=== PATIENT | male | born 1995 | race Caucasian/White ===

== ENCOUNTER 2025-06-30 17:23 | Emergency (ER) | payer SELFPAY ==
[2025-06-30] VITALS (23 sets, daily range): BP systolic 70–124; BP diastolic 35–78; PULSE 84–92; BMI 30.4
[2025-06-30] MEDS: TYLENOL 1000 MG PO (17:56)
[2025-06-30] MEDS: NSS 1000 IV ×2 (18:12→18:52)
[2025-06-30 18:30] LABS: Hematocrit 44.3 % (39.0-52.0); Hemoglobin 16.0 g/dL (13.0-18.0); Mean Corp Hgb Conc. 36.1 g/dL (33.0-37.0); Mean Corpuscular Volume 87.5 fL (80.0-94.0); Nucleated Red Blood Cells % 0 % (-); Platelet Count 203 10^3/uL (130-400); Red Cell Dist. Width 11.6 % (11.5-14.5)
[2025-06-30 18:46] LABS: ALT (SGPT) 36 U/L (0-50); AST (SGOT) 23 U/L (17-59); Albumin 4.5 g/dl (3.5-5.0); Alkaline Phosphatase 75 U/L (38-126); Blood Urea Nitrogen 9 mg/dl (9-20); COVID-19 Antigen Negative (Negative); Calcium 8.9 mg/dl (8.4-10.2); Carbon Dioxide 26 mmol/L (22-30); Chloride 97 mmol/L (98-107); Estimated Creatinine Clearance 98 ml/min; Glucose 141 mg/dl (70-99); Potassium 4.0 mmol/L (3.5-5.1); Sodium 132 mmol/L (135-145); Total Protein 7.0 g/dl (6.3-8.2); eGFR > 60.00
[2025-06-30 18:49] LABS: Troponin I 0.018 ng/ml
[2025-06-30] MEDS: MOTRIN 600 MG PO (18:49)
--- NOTE | 2025-06-30 21:33 | ED.GENMED ---
History of Present Illness
General
Chief Complaint: Chest Pain
Source: patient and spouse ( states that she feels that he was warm at home and felt very hot)
Time Seen by Provider: 06/30/25 17:44
History of Present Illness
History of Present Illness:
Note:
CHIEF COMPLAINT(S)
Headache for three days, fever, body aches, and dizziness.
HISTORY OF PRESENT ILLNESS
The patient is a 29-year-old male presenting with a chief complaint of a headache that has persisted for three days. He reports associated symptoms including fever, noted as high as 99�F on a forehead thermometer, which he acknowledged may not be
entirely accurate. The patient describes chills and body aches that began the previous night and persist. He also mentions feeling dizzy easily and having a cough with a sensation of tightness but without productive sputa. He reports no nasal
congestion or rhinorrhea. The patient took aspirin this morning and acetaminophen previously to manage the symptoms, though they have not provided significant relief. He notes experiencing shivers and feeling tense during these episodes. He denies
neck stiffness.
Additional historian
Spouse states that he felt really warm over the last several days. She states he did have rigors. She also states that the patient's son recently was treated for pneumonia
PAST MEDICAL AND SURGICAL HISTORY
He also reported an incident of Escherichia coli infection that resulted in bloody diarrhea.
SOCIAL HISTORY
The patient does not consume alcohol or use tobacco products. 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
PHYSICAL EXAM
General: Alert, no acute distress.
Skin: Warm, dry.
Head: Normocephalic, atraumatic.
Neck: Supple, trachea midline. No neck rigidity.
Eye, Ears, Nose, Mouth, and Throat: Pupils equal, round, react to light. Oral mucosa moist.
Respiratory: Slightly diminished breath sounds at the right base; otherwise clear. Respirations are non-labored.
Cardiovascular: Heart regular, without murmur. Normal peripheral perfusion. No edema.
Gastrointestinal: Abdomen soft and tender, non-distended.
Extremities: Warm, well-perfused, no edema.
Neurological: Alert and oriented to person, place, time, and situation. No focal neurological deficit observed.
Psychiatric: Cooperative, appropriate mood & affect.
PLAN
- Conduct COVID-19 testing.
- Obtain a chest X-ray to rule out pneumonia.
- Perform blood tests and cultures to assess for systemic infection or dehydration.
- Commence intravenous hydration.
- Monitor vital signs and response to treatment.
- Continue observation for any change in symptoms or condition.
DIFFERENTIAL DIAGNOSIS
The Differential Diagnosis includes, in no particular order and is not limited to:
1. Viral infection
2. Bacterial pneumonia
3. Influenza
4. COVID-19
5. Dehydration
6. Sepsis
7. Meningitis
8. Sinusitis
9. Tension headache
10. Migraine
Disposition:
SUMMARY OF ENCOUNTER
The 29-year-old male patient presented to the emergency department with symptoms of fever, headache, cough, and a recent history of chills and body aches. He mentioned a previous incident of bacterial pneumonia, and his [id number] son had recently
been treated for pneumonia. In the emergency department, the patient underwent laboratory tests and imaging. Laboratory results included a normal white blood cell count and normal lactic acid at 1.1 mmol/L. A COVID-19 test was negative, and a chest
X-ray showed right lower lobe pneumonia. Following treatment with an intravenous dose of ampicillin/sulbactam (Unasyn), the patients symptoms improved, and vital signs normalized. The plan included treating the patient with amoxicillin/clavulanate
(Augmentin) at home for pneumonia.
DISPOSITION
Discharge.
ASSESSMENT
The patient has a right lower lobe pneumonia with recent history of bacterial pneumonia in his family. Laboratory and imaging results supported a non-viral etiology, and the patient responded positively to initial antibiotic treatment.
EMERGENCY TREATMENTS ADMINISTERED
The patient received an intravenous dose of ampicillin/sulbactam (Unasyn).
PLAN
The patient was discharged with a prescription for amoxicillin/clavulanate (Augmentin) to continue treatment for right lower lobe pneumonia. Outpatient follow-up was advised to monitor and ensure resolution of the pneumonia.
INDEPENDENT REVIEW OF LABS AND INTERPRETATION OF TESTS
My independent review of the CBC indicated a normal white blood cell count. My independent review of serum lactate is normal at 1.1 mmol/L. My independent interpretation of the chest X-ray shows right lower lobe pneumonia. The COVID-19 test was
negative.
PATIENT EDUCATION AND COUNSELING
The patient and his spouse were counseled on reasons to return to the emergency department, including worsening symptoms or failure of symptoms to improve with treatment. They agreed to the outpatient management plan.
FOLLOW-UP INSTRUCTIONS
Please follow up with a primary care provider for outpatient management and evaluation of pneumonia resolution.
MEDICATION RECONCILIATION
The patient was prescribed amoxicillin/clavulanate (Augmentin) for home treatment of pneumonia.
MEDICAL DECISION MAKING
-Complexity of Data Reviewed: Chronic conditions affecting care include a recent history of bacterial pneumonia. Differential diagnoses considered included viral infection, bacterial pneumonia, influenza, COVID-19, dehydration, sepsis, meningitis,
sinusitis, tension headache, and migraine.
-Data:
Category 1
Lab tests ordered and reviewed: CBC (showing normal WBC), lactic acid (normal at 1.1 mmol/L), COVID-19 test (negative).
Radiology: My independent interpretation of the chest X-ray showed right lower lobe pneumonia.
-Risk:
Prescription medication was prescribed: amoxicillin/clavulanate (Augmentin) to continue treatment for pneumonia.
Consideration of Admission/Observation: Escalation of care including admission/observation was considered given the complexity and risk of the patients presenting complaint, exam findings, and/or their underlying comorbidities. However, ultimately I
feel the patient is safe for outpatient management with close follow-up. Reasoning: Work-up reassuring, does not reveal any acute life/organ-threatening processes, patients symptoms well controlled upon reevaluation, reexamination is reassuring,
vitals are stable, patient agreeable with discharge, reliable for follow-up.
DIAGNOSIS
Pneumonia, unspecified organism (ICD-10: J18.9).
Past History
Past History
ED Past Medical History: None
ED Past Surgical History: None
Social History
Tobacco: Non-smoker
Personal:
Living: with family
Employment: Employed
Phy Exam
Physical Exam
Physical Exam:
.
Scores
Heart Score for Chest Pain Patients
STEMI patient?: Not applicable
Course
Orders/Labs/Results
Orders:
Orders
06/30/25 17:26
Electrocardiogram (*1) Urgent
Reason for Study: Chest Pain
EKG- Treatment ONCE
06/30/25 17:56
Acetaminophen [Tylenol] 1,000 mg PO NOW STA
06/30/25 17:58
0.9% Sodium Chloride 1000 ml [Nss] 1,000 ml IV BOLUS
06/30/25 18:08
Blood Culture Q20M
YOLIE Source: Blood/Venous
Specimen Description:
Comment: Urgent from separate sites. If patient screens positive for possible sepsis
Blood Culture Q20M
YOLIE Source: Blood/Venous
Specimen Description:
Comment: Urgent from separate sites. If patient screens positive for possible sepsis
06/30/25 18:09
COVID-19 Antigen Urgent
Source: Nasal Swab
Complete Blood Count/With Diff Urgent
Comprehensive Metabolic Panel Urgent
Lactic Acid Q4H
Comment: ON ICE, CANCEL 2ND ORDER IF FIRST LACTIC ACID LEVEL <2
Troponin I Urgent
Influenza A+B Rapid Molecular Urgent
YOLIE Source: Nasal Swab
Specimen Description:
06/30/25 18:44
0.9% Sodium Chloride 1000 ml [Nss] 1,000 ml IV BOLUS
Ibuprofen [Motrin] 600 mg PO NOW STA
06/30/25 18:53
CR Chest - 2 Views Urgent
Comment:
Reason For Exam: fever
06/30/25 21:32
Ampicillin/Sulbactam 3 G [Unasyn] 3 gm 0.9% Sodium Chloride 100 ml [Nss] 100 ml IV NOW
Abnormal Lab Results
06/30/25
18:09
MCH 31.6 H pg
(27.0-31.0)
Absolute Neuts (auto) 7.6 H 10^3/uL
(1.4-6.5)
Absolute Lymphs (auto) 0.9 L 10^3/uL
(1.2-3.4)
Absolute Monos (auto) 0.8 H 10^3/uL
(0.1-0.6)
Neutrophils % 81.7 H %
(42.2-75.2)
Lymphocytes % 9.2 L %
(20.5-51.1)
Sodium 132 L mmol/L
(135-145)
Chloride 97 L mmol/L
(98-107)
Glucose 141 H mg/dl
(70-99)
06/30/25 18:09
06/30/25 18:09
Vital Signs
Initial and Last Documented VS:
Initial Vital Signs
Temp Pulse Resp BP Pulse Ox
102 F H 71 16 70/35 98
06/30/25 17:34 06/30/25 17:34 06/30/25 17:34 06/30/25 17:34 06/30/25 17:34
Last Documented Vital Signs
Temp Pulse Resp BP Pulse Ox
98.8 F 76 22 117/74 97
06/30/25 22:15 06/30/25 22:15 06/30/25 22:15 06/30/25 22:15 06/30/25 22:15
*Pulse Oximetry
SaO2: 96
Oxygen Mode of Delivery: Room air
Patient hypoxic: no
*Critical Care Note
Total Time (30-74mins, 75-104mins- exclusive of procedures): Not Applicable
ED Attending Note
-
Portions of this chart may have been created with voice recognition software.� Occasional wrong word or��sound alike� substitutions may have occurred due to the inherent limitations of voice recognition software.
Discharge Plan
Departure
Patient Disposition: Home (Routine Discharge)
Date of Disposition: 06/30/25
Time of Disposition: 21:35
Patient with high blood pressure during this ER visit?: No
Discharge Problem:
Pneumonia
Instructions: Pneumonia in adults
Prescriptions:
New
amoxicillin-pot clavulanate 875-125 mg tablet
1 tab PO BID Qty: 14 0RF
Referrals:
NONE,* [Family Provider, Internal Medicine]
Activity Restrictions/Additional Instructions:
Please drink plenty fluids and use ibuprofen and Tylenol for fever control as discussed. Return immediately for difficulty breathing, change in mentation, passing out episode or any other concerns. Please see your doctor next 3 to 5 days for
follow-up and reevaluation. Please have a repeat chest x-ray at the completion of treatment to ensure clearance of your pneumonia.
Interventions
Interventions:
*Risk Screen - Suicide Last Done: 06/30/25 17:36
*General Assessment Last Done: 06/30/25 18:30
*Neglect/Abuse Screening Last Done: 06/30/25 17:36
*ED- Fall Risk Assessment Last Done: 06/30/25 18:30
*ED COVID-19 Vaccine History Last Done: 06/30/25 18:30
*ED Influenza Vaccine History Last Done: 06/30/25 18:30
*Nursing Disposition Last Done: 06/30/25 22:38
ED- Cardiac Assessment Last Done: 06/30/25 17:45
Discharge Date and Time
Discharge Date/Time: 06/30/25 22:39
Print Language: GUINEAN
[2025-06-30] MEDS: UNASYN IV (21:53)
== END 2025-06-30 22:39 | disposition home or self-care (01) ==
LOC: EMR 17:23
PROVIDERS: Student in an Organized Health Care Education/Training Program; EMERGENCY PHYSICIAN Emergency Medicine
DX: J18.9 Pneumonia, unspecified organism (principal)
CPT/HCPCS: 99284; 96365; 96361 ×2; 71046; 80053; 83605; 84484; 85025; 87040; 87502; 87811; 93005

== ENCOUNTER 2025-07-01 18:29 | Inpatient (IN) | payer OTHER, SELFPAY ==
[2025-07-01] VITALS (7 sets, daily range): BP systolic 117–140; BP diastolic 71–82; BMI 30.6; BMI 30.5
--- NOTE | 2025-07-01 14:28 | ED.GENMED ---
History of Present Illness
General
Chief Complaint: Fever
Source: patient and spouse
Exam Limitations: none
Time Seen by Provider: 07/01/25 14:11
Nursing documentation reviewed up to this point in time: agreed with
History of Present Illness
History of Present Illness:
Note:
CHIEF COMPLAINT(S)
Persistent fever and dizziness
HISTORY OF PRESENT ILLNESS
The patient is a 29-year-old male presenting with persistent fever and dizziness that started following a recent bacterial infection treated with antibiotics, specifically amoxicillin, two weeks ago. He reports that while sitting or lying down he
feels better, but upon standing, experiences dizziness significant enough to require a moment for orientation. Despite using [id number] medications as instructed by a previous physician, including alternating acetaminophen and ibuprofen, the
symptoms persist. The patient took amoxicillin but states that the fever persists despite antibiotic treatment, expecting relief.
The patient reported his temperature measured with an ear thermometer at home was 103.5�F, finding this concerning. He notes feelings of being 'hot to the touch.' He works in [employer] and questions if his work environment could contribute to his
condition. 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 The patient consumed fluids including Gatorade, and despite some intake (potatoes and an apple in the morning), he is
considering whether he can eat more during his hospital stay.
EXTERNAL RECORDS REVIEWED
Previous medical evaluations included treatment records for a bacterial infection which was managed with amoxicillin, approximately two weeks prior to this episode.
SOCIAL DETERMINANTS AFFECTING HEALTH
The patient works in [employer] and raises concerns regarding potential occupational exposure to pathogens.
SOCIAL HISTORY
No tobacco, alcohol, or illicit drug use was reported.
PHYSICAL EXAM
General: Alert, no acute distress.
Skin: Warm, dry.
Head: Normocephalic, atraumatic.
Neck: Suppile, trachea midline.
Eye, Ears, Nose, Mouth and Throat: Oral mucosa moist.
Cardiovascular: Normal peripheral perfusion, no edema.
Respiratory: Respirations are non-labored.
Gastrointestinal: Abdomen nondistended.
Back: Normal range of motion, normal alignment.
Musculoskeletal: Normal ROM, normal strength.
Neurological: Alert and oriented to person, place, time, and situation. No focal neurological deficit observed.
Psychiatric: Cooperative, appropriate mood and affect.
PROBLEM LIST
Acute:
- Persistent fever
- Dizziness
PLAN
1. Monitor vital signs closely, with focus on temperature regulation and management of fever.
2. Administer IV fluids to address hydration status.
3. Explore potential occupational exposures due to work in [employer], including testing for pathogens such as Legionella.
4. Review previous medication efficacy and consider additional antibiotics if signs of bacterial infection persist.
5. Provide dietary options and encourage nutritional intake.
DIFFERENTIAL DIAGNOSIS
The Differential Diagnosis includes, in no particular order and is not limited to:
1. Viral infection
2. Bacterial infection
3. Legionellosis
4. Dehydration
5. Inner ear disorder (labyrinthitis)
6. Heat exhaustion
7. Hypoglycemia
8. Medication side effects
9. Anemia
10. Meningitis
CARE-UPDATE
07/01/25 - 16:38
Add Rocephin and azithromycin n to the pneumonia treatment regimen. Legionella testing returned negative. Awaiting blood culture results. Admit to hospitalist for continued fevers and pneumonia.
Disposition:
SUMMARY OF ENCOUNTER
The patient presented with persistent fever and dizziness after a recent bacterial infection treated with amoxicillin. In the emergency department, the patient was diagnosed with pneumonia. Management included continuing Rocephin and azithromycin,
and admission to hospitalist due to persistent fevers.
DISPOSITION
Discharge.
ASSESSMENT
The patient presents with symptoms consistent with pneumonia, potentially secondary to a bacterial infection unresolved by initial antibiotic therapy.
EMERGENCY TREATMENTS ADMINISTERED
Ibuprofen was given for fever control. An initial dose of azithromycin was administered and Rocephin.
PLAN
Admit to hospitalist for continued fevers and right lower lobe pneumonia.
INDEPENDENT REVIEW OF LABS AND INTERPRETATION OF TESTS
Chest x-ray shows right lower lobe pneumonia
MEDICATION RECONCILIATION
An initial dose of Rocephin and azithromycin was given in the ED;
MEDICAL DECISION MAKING
-Complexity of Data Reviewed: Differential diagnosis includes pneumonia, potential secondary bacterial infection, or persistent bacterial infection.
-Data:
Category 1
Non-emergency department records reviewed: Reviewed outpatient pharmacy medication records and previous treatment history.
Category 2
No independent historian or additional sources mentioned.
Category 3
Discussed with hospitalist, who admitted patient
DIAGNOSIS
Pneumonia (J18.9).
Past History
Past History
ED Past Medical History: None
ED Past Surgical History: None
Social History
Tobacco: Non-smoker
Personal:
Living: with family
Employment: Employed
Phy Exam
Physical Exam
Physical Exam:
.
Sepsis
Sepsis Screening
Sepsis Assessment: Sepsis
Sepsis Screen
Sepsis Screen: Sepsis
Date: 07/01/25
Time: 19:39
Course
Orders/Labs/Results
Orders:
Orders
07/01/25 14:25
IV Insert/Care/Rem.- Treatment PRN
0.9% Sodium Chloride 1000 ml [Nss] 2,000 ml IV BOLUS
07/01/25 14:31
Basic Metabolic Panel Urgent
Complete Blood Count/With Diff Urgent
Urinalysis Reflex To Culture Urgent
Date Specimen was Collected: 07/01/25
Time Specimen was Collected: 14:31
Comment: ADD ON
Urine Microscopic Reflex Cult Urgent
Legionella Urinary Antigen Urgent
YOLIE Source: Urine
Specimen Description:
07/01/25 Dinner
Regular
At Your Request: Full Participation
Does patient need a safe tray?: No
07/01/25 15:17
Ibuprofen [Motrin] 600 mg PO NOW STA
07/01/25 15:54
Azithromycin [Zithromax] 500 mg PO NOW STA
07/01/25 16:10
Acetaminophen [Tylenol] 1,000 mg .ROUTE .[facility]
07/01/25 16:18
Acetaminophen [Tylenol] 1,000 mg PO NOW STA
07/01/25 17:32
CefTRIAXone [Rocephin] 2,000 mg IV NOW STA
07/01/25 17:37
Admit/Transfer Patient As Directed
Co-Sign Provider:
Level of Care: Inpatient admission
Assign to:: Medical/Surgical
Physician / Group: Bert Agudelo
Diagnosis: Pneumonia, high grade fever
Reason for Hospitalization: Pneumonia, high grade fever
Expected length of stay greater than two midnights?: Yes
ELOS- Estimated Length of Stay in days: 2
I certify the patient meets the requirements for IP care: Yes
UA Reflex to Culture [Urinalysis Reflex To Culture] Routine
07/01/25 17:38
Code Status As Directed
Resuscitation Status: Full Code
PRN Pain Medication Management As Directed
May give lesser potent ordered pain med per pt: Yes
preference::
Protocol:: Medication orders for pain may be administered in a
manner that supports deferring to patient preference
when the pt is:
- Requesting an ordered lesser potent pain medication.
Least to most potent pain medications are defined
as: acetaminophen < NSAID < tramadol < opioids
(morphine, oxycodone, hydromorphone).
- Requesting a lesser dose of the same medication IF
ORDERED.
- Requesting a less intrusive route of administration
if both routes are prescribed by the provider (PO <
IV).
07/01/25 17:49
Add On- LAB Urgent
Comments:: urine in lab already
Tests Added?: Urinalysis with reflex to Culture
07/01/25 17:55
CT Chest W/o Iv Contrast Routine
Comment:
Reason For Exam: cough/fever/non responding to abx
07/01/25 17:56
Lactic Acid Q4H
Comment: CANCEL 2nd LACTIC ACID IF 1st LACTIC ACID IS LESS THAN 2
Blood Culture Q30M
YOLIE Source: Blood/Venous
Specimen Description:
07/01/25 18:02
Blood Culture Q30M
YOLIE Source: Blood/Venous
Specimen Description:
07/01/25 18:15
Sterile Water [Sterile Water For Injection] 20 ml .ROUTE .[facility]
07/01/25 19:20
PULMONARY CONSULT Routine
Consulting Provider: Humza Augustin
Was physician already notified: Yes
Reason for consult: pneumonia
Respiratory Culture/Gram Stain Urgent
YOLIE Source: Sputum
Specimen Description:
Strep pneumoniae Antigen Routine
YOLIE Source: Urine
Specimen Description:
Activity As Directed
Activity Level: Out of Bed-Early Mobility
Intake/ Output As Directed
Frequency: Per unit guidelines
Vital Signs As Directed
Frequency: Per unit guidelines
Weight As Directed
Frequency: Once
Comment: on admission
DX Deep Vein Thrombosis Video Routine
07/01/25 20:00
Acetaminophen [Tylenol] 650 mg PO Q4HPRN PRN
Enoxaparin Sodium [Lovenox] 40 mg SC QPM
Guaifenesin/Dextromethorphan [Robitussin Dm] 10 ml PO Q4HPRN PRN
Ondansetron Injectable [Zofran] 4 mg IV Q6HPRN PRN
07/02/25 06:00
Basic Metabolic Panel IN AM
Complete Blood Count/With Diff IN AM
07/02/25 18:00
CefTRIAXone [Rocephin] 1,000 mg IV Q24H
Doxycycline [Vibramycin] 100 mg PO BID
07/03/25 06:00
Basic Metabolic Panel IN AM
Complete Blood Count/With Diff IN AM
Abnormal Lab Results
07/01/25
14:31
MCH 31.2 H pg
(27.0-31.0)
Absolute Lymphs (auto) 0.9 L 10^3/uL
(1.2-3.4)
Neutrophils % 82.3 H %
(42.2-75.2)
Lymphocytes % 12.1 L %
(20.5-51.1)
Sodium 134 L mmol/L
(135-145)
BUN 6 L mg/dl
(9-20)
Glucose 101 H mg/dl
(70-99)
Urine Ketones 3+ A
(Negative)
Ur Occult Blood Reflex 1+ A
(Negative)
Urine Bacteria (Reflex) Few A
(Negative)
Urine Albumin (Reflex) 2+ A
(Neg - Trace)
07/01/25 14:31
07/01/25 14:31
Vital Signs
Initial and Last Documented VS:
Initial Vital Signs
Temp Pulse Resp BP Pulse Ox
101.6 F H 100 20 118/76 96
07/01/25 13:49 07/01/25 13:49 07/01/25 13:49 07/01/25 13:49 07/01/25 13:49
Last Documented Vital Signs
Temp Pulse Resp BP Pulse Ox
100.5 F H 96 18 117/81 97
07/01/25 18:21 07/01/25 18:21 07/01/25 18:21 07/01/25 18:21 07/01/25 18:21
*Pulse Oximetry
SaO2: 96
Oxygen Mode of Delivery: Room air
Patient hypoxic: no
*Critical Care Note
Total Time (30-74mins, 75-104mins- exclusive of procedures): Not Applicable
ED Attending Note
-
Portions of this chart may have been created with voice recognition software.� Occasional wrong word or��sound alike� substitutions may have occurred due to the inherent limitations of voice recognition software.
Discharge Plan
Departure
Patient Disposition: Admit
Date of Disposition: 07/01/25
Time of Disposition: 15:54
Admit to: Med/Surg
Presentation/result/management discussed w/ accepting MD/DO: Hospitalist
Patient with high blood pressure during this ER visit?: Yes
Condition: Fair
Discharge Problem:
Pneumonia
Interventions
Interventions:
*Risk Screen - Suicide Last Done: 07/01/25 13:49
*General Assessment Last Done: 07/01/25 13:49
*Neglect/Abuse Screening Last Done: 07/01/25 14:40
*ED- Fall Risk Assessment Last Done: 07/01/25 14:40
*ED COVID-19 Vaccine History Last Done: 07/01/25 13:49
*ED Influenza Vaccine History Last Done: 07/01/25 13:49
*Nursing Disposition Last Done: 07/01/25 19:14
ED- Neurological Assessment Last Done: 07/01/25 14:40
ED-Skin Assessment Last Done: 07/01/25 14:40
Discharge Date and Time
Discharge Date/Time: 07/01/25 19:14
[2025-07-01] MEDS: NSS 2000 IV (14:30)
[2025-07-01 14:46] LABS: Hematocrit 46.2 % (39.0-52.0); Hemoglobin 16.2 g/dL (13.0-18.0); Mean Corp Hgb Conc. 35.1 g/dL (33.0-37.0); Mean Corpuscular Volume 88.8 fL (80.0-94.0); Nucleated Red Blood Cells % 0 % (-); Platelet Count 172 10^3/uL (130-400); Red Cell Dist. Width 11.9 % (11.5-14.5)
[2025-07-01 15:05] LABS: Blood Urea Nitrogen 6 mg/dl (9-20); Calcium 8.8 mg/dl (8.4-10.2); Carbon Dioxide 27 mmol/L (22-30); Chloride 102 mmol/L (98-107); Estimated Creatinine Clearance 118 ml/min; Glucose 101 mg/dl (70-99); Potassium 4.1 mmol/L (3.5-5.1); Sodium 134 mmol/L (135-145); eGFR > 60.00
[2025-07-01] MEDS: MOTRIN 600 MG PO (15:23)
[2025-07-01 15:30] LABS: Glucose - Point of Care 90 mg/dl (70-99)
[2025-07-01] MEDS: TYLENOL 1000 MG PO (16:18)
[2025-07-01] MEDS: ZITHROMAX 500 MG PO (16:22)
--- NOTE | 2025-07-01 17:56 | HPS.HSE ---
Family Physician
-
Family Physician: * NONE
Chief Complaint
-
Fever/generalized weakness
History of Present Illness
Patient is 29-year-old male with past medical history of colitis/diarrhea came to ER with new onset of generalized weakness and fever. Patient was having symptoms of headache and nasal congestion yesterday and associated with some dry cough.
Patient took some [id number] medication without much help. Came to the ER yesterday and was diagnosed to having right lower lobe pneumonia. Patient was provided dose of IV antibiotics followed by oral Augmentin prescription. Patient took 1
dose in the morning today although continued to have worsening fever. Patient was also reported to be somewhat disoriented at times by spouse. Was brought in for further evaluation.
During my visit patient not voicing any complaint except not feeling overall well. Having some headache. Denies of having any neck stiffness. No overt nausea vomiting diarrhea ongoing no dysuria
Medical History
Past Medical History
Past Medical History: Reports Other
Additional Past Medical History:
history of colitis/diarrhea
Past Surgical History: Reports Other
Social History
Tobacco: Non-smoker
Alcohol: None
Drug: None
Personal:
Living: With Family
Family History
Family History: Not pertinent
Allergies / Home Medications
Allergies reflects when Allergies were last updated in [facility].
Home Medications with original date entered in [facility]
Allergy/Medication List:
Allergies
Allergy/AdvReac Type Severity Reaction Status Date / Time
No Known Allergies Allergy Verified 07/01/25 13:52
Home Medications
acetaminophen 500 mg tablet 500 mg PO Q3H 07/01/25
acetylcysteine 600 mg capsule (NAC) 600 mg PO DAILY 07/01/25
amoxicillin 875 mg-potassium clavulanate 125 mg tablet 1 tab PO BID 07/01/25
aspirin 325 mg tablet 650 mg PO DAILYPRN PRN fever 07/01/25
ibuprofen 200 mg tablet 400 mg PO Q3H 07/01/25
Review of Systems
-
A 12 point ROS was completed and negative except as noted: Yes
Physical Exam
Vital Signs
Vital Signs
Temp Pulse Resp BP Pulse Ox
102.9 F H 111 20 124/71 97
07/01/25 17:27 07/01/25 17:27 07/01/25 17:27 07/01/25 17:27 07/01/25 17:27
Physical Exam
General: No Apparent Distress
HEENT: No Oxygen
Respiratory: Clear
Cardiac: S1/S2 and Regular Rhythm; No Murmur or Rub
GI: Soft, Non Tender, Non Distended and Normal Bowel Sounds; No Organomegaly
Musculoskeletal: No Clubbing, No Cyanosis and No Edema
Skin: No Rash
Neuro: Nonfocal/grossly intact
Laboratory Results
-
07/01/25 14:31
07/01/25 14:31
Impression/Plan
-
1. Right lower lobe pneumonia
Sepsis with associated acute toxic encephalopathy
-Patient have new onset of URTI symptoms/headache/dry cough and some confusion
-Chest x-ray showing right lower lobe infiltrate
-CT chest without contrast ordered for better delineating pulmonary parenchyma
-Blood cultures collected in ER
-Legionella/influenza/COVID-negative
-Respiratory culture to be collected if patient able to provide sample
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
-Got IV Rocephin/azithromycin in ER, switch to Rocephin and doxycycline
-Pulmonology consult for further evaluation and help
2. History of colitis
-Last visit reported patient to have infectious colitis
-Spouse reports patient have on and off diarrhea, also have failed to follow-up with gastroenterology in office
DVT prophylaxis -Lovenox
Full code
Total time spent : 78 mins
I personally saw and examined the patient.
I have reviewed all diagnostic interpretations and treatment plans as written.
Time includes patient management by me, time spent at the patients bedside, time to review lab and imaging results, discussing patient care, documentation in the medical record, and time spent with the family or caregiver and discussing care plan
with RN/Consultants.
[2025-07-01] MEDS: ROCEPHIN 2000 MG IV (18:24)
[2025-07-01 18:35] LABS: Urine Character Clear (Clear)
[2025-07-01 18:40] LABS: Urine White Cell 0-2 /HPF (0-5)
[2025-07-01 18:41] LABS: Urine Red Blood Cell 0-2 /HPF (0-2)
--- NOTE | 2025-07-01 20:29 | PTCARENOTE ---
Arrived to unit around 20:00 via stretcher. AAOX3. No signs of distress. OROZCO but denies further SOB. P7% on room air. Call love within reach. Oriented to unit.
--- NOTE | 2025-07-01 22:20 | W.PN.UPDATE ---
Update Note
Progress Note Update
Patient's oral temperature 103.1, patient refusing PO tylenol, stating it isn't doing anything. Spoke to patient, reviewed plan of care. Tylenol 1 g IV ordered for fever, pain, headache. Recommended cool compresses to help lower temperature. Will
add ibuprofen for secondary antipyretic for fever > 100.4, not relieved by Tylenol. Patient is agreeable to try this plan.
[2025-07-01 22:41] LABS: Urine Character Clear (Clear)
[2025-07-01] MEDS: OFIRMEV 100 IV (22:50)
[2025-07-01 22:53] LABS: Urine Squamous Cell 0-2 /LPF (Few)
[2025-07-01 22:54] LABS: Urine Red Blood Cell 0-2 /HPF (0-2); Urine White Cell 0-2 /HPF (0-5)
[2025-07-02] MEDS: MOTRIN 400 MG PO ×2 (03:38→14:28)
[2025-07-02 06:55] LABS: Hematocrit 40.8 % (39.0-52.0); Hemoglobin 14.1 g/dL (13.0-18.0); Mean Corp Hgb Conc. 34.6 g/dL (33.0-37.0); Mean Corpuscular Volume 90.9 fL (80.0-94.0); Nucleated Red Blood Cells % 0 % (-); Platelet Count 165 10^3/uL (130-400); Red Cell Dist. Width 11.9 % (11.5-14.5)
[2025-07-02 07:14] LABS: Blood Urea Nitrogen 5 mg/dl (9-20); Calcium 8.3 mg/dl (8.4-10.2); Carbon Dioxide 26 mmol/L (22-30); Chloride 101 mmol/L (98-107); Estimated Creatinine Clearance 118 ml/min; Glucose 124 mg/dl (70-99); Potassium 3.4 mmol/L (3.5-5.1); Sodium 135 mmol/L (135-145); eGFR > 60.00
[2025-07-02 07:50] VITALS: BP 124/82
--- NOTE | 2025-07-02 12:44 | W.PN.HOSP.TC ---
Today's Communication/Plan
-
Follow-up respiratory/blood culture report
Continue empiric antibiotic
Await pulmonology evaluation
Assessment / Plan
Assessment / Plan
1. Right lower lobe pneumonia
Sepsis with associated acute toxic encephalopathy
-Patient have new onset of URTI symptoms/headache/dry cough and some confusion
-Chest x-ray showing right lower lobe infiltrate
-CT chest without contrast images reviewed and patient have dense right lower lobe consolidation. No other complicating findings of effusion/abscess/cavitary lesion.
-Blood cultures collected, f/u result
-Legionella/influenza/COVID-negative
-Respiratory culture collected , f/u result
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
-Got IV Rocephin/azithromycin in ER, switch to Rocephin and doxycycline
-Pulmonology consult for further evaluation and help
2. History of colitis
-Last visit reported patient to have infectious colitis
-Spouse reports patient have on and off diarrhea, also have failed to follow-up with gastroenterology in office
DVT prophylaxis -Lovenox
Full code
Anticipated Discharge: 24 - 48 hours
Subjective/Interval History
-
Date of Service: July 02, 2025
Continues to have fever
No new complaints
Objective Data
-
Labs:
Laboratory Results
07/02/25
05:55
WBC 5.6
Hgb 14.1
Hct 40.8
Plt Count 165
Sodium 135
Potassium 3.4 L
Chloride 101
Carbon Dioxide 26
BUN 5 L
Creatinine 1.0
Glucose 124 H
Calcium 8.3 L
Vital Signs:
Vital Signs
Temp Pulse Resp BP Pulse Ox
100.3 F 88 16 124/82 96
07/02/25 10:00 07/02/25 07:50 07/02/25 07:50 07/02/25 07:50 07/02/25 07:50
I&O
07/01/25 07/02/25 07/03/25
06:59 06:59 06:59
Intake Total 2019
Output Total 400 / 400
Balance 1620 / 1620
Review of Systems
-
Respiratory: Reports Cough; Denies Trouble Breathing
Cardiac: Reports No Symptoms
Abdomen/GI: Reports No Symptoms
Physical Exam
-
General: Negative Appears in Distress
HEENT: Negative Oxygen
Neuro: Awake, Alert and Oriented
--- NOTE | 2025-07-02 13:20 | CON.PUL ---
Consultation
Consultation Request
Date/Time Consultation Requested: 07/01/2025 - 192
Date/Time Consultation Performed: 07/02/2025 - 939
Requesting Provider: Dr. Agudelo
Performing Provider: Dr. Augustin
Reason for Consultation: Pneumonia
Medical History
-
Chief Complaint: SOB, fever and chest pain
History of Present Illness:
29-year-old male non-smoker with a past medical history of childhood ADHD and history of infectious colitis due to E. coli who presents with shortness of breath, chest pain and fever. Patient was here in the ER on 06/30/2025 due to chest pain for 3
days and he was diagnosed with right lower lobe pneumonia and sent home with Augmentin. Once he went home he had a fever (measured by via ear thermometer), and he was having additional chest tightness so they return to the hospital. Initial
EKG was nonconcerning for coronary ischemia. Initially he was febrile to 101.6 9, with pulse rate 100, respiratory rate 20, BP 118/76 and he was saturating 96% on room air. Labs showed normal WBC at 7.3, Hb 16.2, sodium 134, lactate 0.7,
urinalysis with +3 ketones with no signs of UTI, and COVID-19 antigen negative. In the ER on 06/30, he was negative for flu swab. Blood cultures collected in the ER on 06/30/[address] chest performed on 07/01/2025 showed right lower
lobe consolidation with concern for pneumonia. In the ER he was given Zithromax, ceftriaxone, ibuprofen, Tylenol and IVF with 2 L NS 0.9%. He was admitted to the hospital service, and now pulmonary service consulted for additional
management/recommendations.
When I saw the patient today, he was resting in bed with his , Mary and the patient's son all at bedside. Patient is feeling a little bit better, feels like his fever has broke and now he feels sweaty at times. Bringing up some yellow phlegm
and has no difficulty expectorating. His chest tightness is currently gone. Prior to him coming to the hospital, his had him take a dose of NAC although this did not help. He currently denies nausea/vomiting/chills. He says that when he
gets a fever that he also gets a significant headache.
PMHx: History of IBS with infectious colitis (E. coli), history of childhood ADHD
PSHx: Sigmoidoscopy (06/02/2022)
Past Medical History
Past Medical History: Other (Above as per HPI)
Past Surgical History: Other (Above as per HPI)
Social History
Tobacco: Non-smoker
Alcohol: None
Drug: None
Personal:
Living: With Family
Employment: Employed ( [employer])
Family History
Family History: Cancer (Paternal grandfather: Skin cancer; maternal aunt: Breast cancer), Diabetes (mother) and Other (Maternal grandmother + maternal grandfather: Alzheimer's disease)
Allergies / Home Medications
Allergies
Allergy/AdvReac Type Severity Reaction Status Date / Time
No Known Allergies Allergy Verified 07/01/25 13:52
Home Medications
�Medication �Instructions �Recorded �Confirmed �Last Taken �Type
acetaminophen 500 mg tablet 500 mg PO Q3H Pain 07/01/25 07/01/25 07/01/25 History
acetylcysteine 600 mg capsule (NAC) 600 mg PO DAILY Mucolytic Agent 07/01/25 07/01/25 07/01/25 History
amoxicillin 875 mg-potassium 1 tab PO BID Infection 07/01/25 07/01/25 07/01/25 History
clavulanate 125 mg tablet
aspirin 325 mg tablet 650 mg PO DAILYPRN PRN fever 07/01/25 07/01/25 06/30/25 History
ibuprofen 200 mg tablet 400 mg PO Q3H PAIN/INFLAMMATION 07/01/25 07/01/25 07/01/25 History
Review of Systems
-
History Source: Patient
All other systems: Negative unless noted
Vitals / Labs / Diagnostic Testing
Vital Signs
Temp Pulse Resp BP Pulse Ox
100.3 F 88 16 124/82 96
07/02/25 10:00 07/02/25 07:50 07/02/25 07:50 07/02/25 07:50 07/02/25 07:50
Lab Data
07/02/25 05:55
07/02/25 05:55
Microbiology
07/01/25 22:23 Urine Streptococcus pneumoniae Antigen (M - Final
Negative for Streptococcus pneumoniae antigen.
A negative result does not exclude infection with
Streptococcus pneumoniae. Clinical correlation is
recommended.
07/01/25 14:31 Urine Legionella Urinary Antigen - Final
Negative for Legionella pneumophila Serogroup 1 antigen.
A negative result does not rule out the possiblity of
Legionella infection due to other serogroups or species of
Legionella. Clinical correlation is recommended.
Diagnostic Testing:
Physical Exam
-
HEENT: Normocephalic and Anicteric
Cardiovascular: S1/S2 and Peripheral Edema (negative)
Respiratory: Wheeze (negative), Rales (right middle/lower lobe), Rhonchi (right middle/lower lobe) and Non-Labored Respirations
GI: Soft, Non Distended, Non Tender and Normal Bowel Sounds
Neurology: AO x 3 and Tremors (negative)
Skin: Warm and Dry
General: Respiratory Distress (negative), Comfortable, Fever (positive), Chills (negative) and Sweats (positive)
Assessment
-
Assessment: 29-year-old male non-smoker with a past medical history of childhood ADHD and history of infectious colitis due to E. coli who presents with shortness of breath, chest pain and fever. Patient was here in the ER on 06/30/2025 due to
chest pain for 3 days and he was diagnosed with right lower lobe pneumonia and sent home with Augmentin. Once he went home he had a fever (measured by via ear thermometer), and he was having additional chest tightness so they return to the
hospital. Initial EKG was nonconcerning for coronary ischemia. Initially he was febrile to 101.6 9, with pulse rate 100, respiratory rate 20, BP 118/76 and he was saturating 96% on room air. Labs showed normal WBC at 7.3, Hb 16.2, sodium 134,
lactate 0.7, urinalysis with +3 ketones with no signs of UTI, and COVID-19 antigen negative. In the ER on 06/30, he was negative for flu swab. Blood cultures collected in the ER on 06/30/[address] chest performed on 07/01/2025 showed
right lower lobe consolidation with concern for pneumonia. In the ER he was given Zithromax, ceftriaxone, ibuprofen, Tylenol and IVF with 2 L NS 0.9%. He was admitted to the hospital service, and now pulmonary service consulted for additional
management/recommendations.
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 coli), history of childhood ADHD
Impression:
#Right lower lobe community-acquired pneumonia
#Sepsis due to above without shock
#Hypokalemia
#Snoring with concern for sleep-disordered breathing
#History of ADHD
Plan:
- Patient found to have a large right lower lobe pneumonia; he was here in the ER 1 day prior to this current admission and diagnosed with right lower lobe pneumonia and discharged home on Augmentin. Since being home he had recurrent high fevers
with fatigue/malaise, and chest discomfort and this is what brought him back to the hospital. EKG is not concerning for coronary ischemia.
- Continue to monitor any recurrent chest pain
- Recommend repeat imaging (CXR vs CT Chest) in 4 to 6 weeks to assure his pneumonia resolves or at least significantly improves
- Continue with antibiotics, currently on ceftriaxone + doxycycline
- Given the extent of his right lower lobe pneumonia and considering that he failed outpatient antibiotics (Augmentin), would treat him for a total of 7 days assuming that he continues to clinically improve and remains afebrile for 48 hours prior
to stopping antibiotics
- Follow-up sputum culture (shows NGTD)
- Follow up blood Cx (NGTD)
- Urine antigens for Legionella/strep pneumonia both negative
- Maintain SpO2 >90-94%, using supplemental O2 as needed
- prn nebulized bronchodilators - patient not currently bronchospastic
- Mucolytics as needed +/- flutter valve
- Up OOB as tolerated
- Given that he has no leukocytosis, check procal and if negative then would consider stopping Abx vs give shorter ABx course
- Clinical history and imaging is not suggestive of alternative infection (i.e., viral or fungal)
- Lactate normal, hence no concern for shock
- Per the , the patient snores at night and this may have been how he aspirated and led to him having a pneumonia. Hence if his procalcitonin is negative, then would presume that he has an aspiration pneumonitis
- I will arrange for outpatient pulmonary office follow-up not only to check his symptoms and repeat imaging (with PFTs +/- 6MWT), but also to discuss sleep disordered breathing and offer sleep study
- The patient's father snores as well
- Replete electrolytes with K>4, Mg>2
- Maintain euglycemia with goal BG >100mg/dL and <180mg/dL
- Trend H/H and transfuse if needed to keep Hb >7-8g/dL; keep plt>10-20k, unless there is concern for bleeding then keep plt>50k
- Incentive spirometer encouraged 10x per hour for at least 4 hours a day
- DVT ppx: LMWH
Pulmonary service will continue to follow along.
Total time spent today was 62 minute for this encounter. Time includes reviewing laboratory tests/imaging results, reviewing pertinent medical records, obtaining and reviewing medical history, performing an appropriate physical exam, ordering
medications, tests and procedures. Time also includes documentation of this encounter, coordinating patient care and communicating with other healthcare professionals. Total time does not include separately billed tests or procedures performed on
this date of service.
Data:
CT chest without contrast 07/01/2025: Right lower lobe consolidation suspicious for pneumonia
[2025-07-02] MEDS: TYLENOL 650 MG PO (13:38)
--- NOTE | 2025-07-02 14:54 | CM ---
CM reviewed chart, patient seen bedside with and son, initial assessment completed.
Patient is 29-year-old male with past medical history of colitis/diarrhea came to ER with new onset of generalized weakness and fever.
Patient resides with his and son in a apartment above a business, flight of stairs to enter.
Patient declines VN/SNF/ DME, is independent with ADLs/IADLs.
Patient does not have a PCP, Pharmacy [facility].
Patient reports he is in the process of obtaining insurance from work- unsure name of insurance.
Declines needs at this time.
CM will continue to follow for all d/c needs.
Plan; home no needs anticipated
[2025-07-02 15:17] VITALS: BP 135/80
[2025-07-02] MEDS: IMODIUM 2 MG PO (16:04)
[2025-07-02] MEDS: VIBRAMYCIN 100 MG PO ×2 (18:37→19:42)
[2025-07-02] MEDS: STERILE WATER FOR INJECTION 10 ML IV (18:37)
[2025-07-02] MEDS: ROCEPHIN 1000 MG IV (18:37)
[2025-07-02 23:04] VITALS: BP 122/77
[2025-07-03] MEDS: TYLENOL 650 MG PO ×2 (02:45→12:03)
[2025-07-03 07:05] VITALS: BP 123/78
[2025-07-03 08:06] LABS: Hematocrit 44.7 % (39.0-52.0); Hemoglobin 15.3 g/dL (13.0-18.0); Mean Corp Hgb Conc. 34.2 g/dL (33.0-37.0); Mean Corpuscular Volume 92.2 fL (80.0-94.0); Nucleated Red Blood Cells % 0 % (-); Platelet Count 169 10^3/uL (130-400); Red Cell Dist. Width 11.9 % (11.5-14.5)
[2025-07-03] MEDS: VIBRAMYCIN 100 MG PO (08:24)
--- NOTE | 2025-07-03 09:37 | W.PN.PUL.V3 ---
Today's Communication / Plan
-
Continue antibiotics
Follow radiographically
Increase activity
Assessment
-
Assessment: 29-year-old male non-smoker with a past medical history of childhood ADHD and history of infectious colitis due to E. coli who presents with shortness of breath, chest pain and fever. Patient was here in the ER on 06/30/2025 due to
chest pain for 3 days and he was diagnosed with right lower lobe pneumonia and sent home with Augmentin. Once he went home he had a fever (measured by via ear thermometer), and he was having additional chest tightness so they return to the
hospital. Initial EKG was nonconcerning for coronary ischemia. Initially he was febrile to 101.6 9, with pulse rate 100, respiratory rate 20, BP 118/76 and he was saturating 96% on room air. Labs showed normal WBC at 7.3, Hb 16.2, sodium 134,
lactate 0.7, urinalysis with +3 ketones with no signs of UTI, and COVID-19 antigen negative. In the ER on 06/30, he was negative for flu swab. Blood cultures collected in the ER on 06/30/[address] chest performed on 07/01/2025 showed
right lower lobe consolidation with concern for pneumonia. In the ER he was given Zithromax, ceftriaxone, ibuprofen, Tylenol and IVF with 2 L NS 0.9%. He was admitted to the hospital service, and now pulmonary service consulted for additional
management/recommendations.
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 coli), history of childhood ADHD
Impression:
#Right lower lobe community-acquired pneumonia
#Sepsis due to above without shock
#Hypokalemia
#Snoring with concern for sleep-disordered breathing
#History of ADHD
Plan:
Respiratory status stable with the exception patient reports 'difficulties taking a full deep breath'
Supplemental oxygen if needed-currently on room air
Increase activity
Incentive spirometry
Mucolytic's
Aspiration precautions
Nebulizers as needed-currently not bronchospastic
Follow radiographically
Hold off on steroid unless noninfectious inflammatory lung disease including cryptogenic organizing pneumonia suspected
Check cultures
Urine Legionella and streptococcal antigen negative
Procalcitonin pending
Follow temperature curve-appears to be decreasing
Mild leukopenia
Sputum culture if able
Empiric antibiotics-ceftriaxone and doxycycline
DVT prophylaxis-on Lovenox
Outpatient pulmonary/sleep disorders [id number] repeat CT chest in 4-6 weeks as well as probable home polysomnogram with obstructive sleep apnea symptomatology
Data:
CT chest without contrast 07/01/2025: Right lower lobe consolidation suspicious for pneumonia
Subjective Data
-
Date of Service:
Date of Service: July 03, 2025
Chief Complaint: Pulmonary Follow Up and Dyspnea Follow Up
Subjective:
Feels about the same, no shortness of breath with exertion, minimal productive cough, 'cannot take a deep breath', no abdominal pain
Review of Systems
General: Other ( per HPI)
Objective Data
Data Reviewed
Vital Signs / I&O:
Vital Signs
Temp Pulse Resp BP Pulse Ox
97.8 F 75 18 123/78 98
07/03/25 07:05 07/03/25 07:05 07/03/25 07:05 07/03/25 07:05 07/03/25 07:05
Intake and Output
07/02/25 07/03/25 07/04/25
06:59 06:59 06:59
Intake Total 2019 2880 / 2880
Output Total 400 / 400
Balance 1620 / 1620 2880 / 2880
SaO2: 98
Physical Exam
General: Respiratory Distress (n) and Comfortable
HEENT: Normocephalic, Anicteric and Moist Mucous Membranes
Cardiovascular: Regular Rhythm
Respiratory: Wheeze (n), Crackles (Right basilar crackles) and Rhonchi (n)
GI: Soft, Non Distended and Non Tender
Neurology: Awake, Alert and No Motor Deficits
Skin: Warm, Good Color, Cyanosis (n), Jaundice (n) and Rash (n)
Labs/Micro/Reports
Lab Data
07/03/25 07:29
Microbiology
07/01/25 22:24 Sputum Respiratory Culture - Preliminary
Usual Respiratory Bonnie
07/01/25 22:24 Sputum Gram Stain - Preliminary
07/01/25 18:02 Blood/Venous Blood Culture - Preliminary
No Growth in 24 hours- Final report to follow
07/01/25 17:56 Blood/Venous Blood Culture - Preliminary
No Growth in 24 hours- Final report to follow
07/01/25 22:23 Urine Streptococcus pneumoniae Antigen (M - Final
Negative for Streptococcus pneumoniae antigen.
A negative result does not exclude infection with
Streptococcus pneumoniae. Clinical correlation is
recommended.
07/01/25 14:31 Urine Legionella Urinary Antigen - Final
Negative for Legionella pneumophila Serogroup 1 antigen.
A negative result does not rule out the possiblity of
Legionella infection due to other serogroups or species of
Legionella. Clinical correlation is recommended.
[2025-07-03 10:10] LABS: Blood Urea Nitrogen 8 mg/dl (9-20); Calcium 9.1 mg/dl (8.4-10.2); Carbon Dioxide 31 mmol/L (22-30); Chloride 100 mmol/L (98-107); Estimated Creatinine Clearance > 125 ml/min; Glucose 98 mg/dl (70-99); Potassium 4.0 mmol/L (3.5-5.1); Sodium 134 mmol/L (135-145); eGFR > 60.00
[2025-07-03 10:13] LABS: Procalcitonin 0.23 ng/ml (0.0-0.25)
--- NOTE | 2025-07-03 11:31 | W.PN.HOSP.TC ---
Today's Communication/Plan
-
Negative procalcitonin
Continue IV antibiotic
Discharge home on oral antibiotics
Assessment / Plan
Assessment / Plan
Impression:
Patient is 29-year-old male with past medical history of colitis/diarrhea came to ER with new onset of generalized weakness and fever. Patient was having symptoms of headache and nasal congestion yesterday and associated with some dry cough.
Patient took some wryq-iaw-gbvfsiw medication without much help. Came to the ER yesterday and was diagnosed to having right lower lobe pneumonia. Patient was provided dose of IV antibiotics followed by oral Augmentin prescription. Patient took 1
dose in the morning today although continued to have worsening fever. Patient was also reported to be somewhat disoriented at times by spouse. Was brought in for further evaluation.
Patient admitted to the hospital and started on IV antibiotics in form of Rocephin and Zithromax.
Seen by pulmonology, CT chest shows right lower lobe consolidation.
Procalcitonin came back 0.23.
Will be discharged on short-term oral antibiotics
Assessment/plan:
1. Right lower lobe pneumonia
Sepsis with associated acute toxic encephalopathy
-Patient have new onset of URTI symptoms/headache/dry cough and some confusion
-Chest x-ray showing right lower lobe infiltrate
-CT chest without contrast images reviewed and patient have dense right lower lobe consolidation. No other complicating findings of effusion/abscess/cavitary lesion.
-Blood cultures collected, f/u result
-Legionella/influenza/COVID-negative
-Respiratory culture collected , f/u result
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
-Got IV Rocephin/azithromycin in ER, switch to Rocephin and doxycycline
-Pulmonology consult for further evaluation and help
- Procalcitonin came back 0.23.
- Will be discharged on short-term oral antibiotics
2. History of colitis
-Last visit reported patient to have infectious colitis
-Spouse reports patient have on and off diarrhea, also have failed to follow-up with gastroenterology in office
3. hyponatremia.
Resolved
CODE STATUS: Full code
DVT prophylaxis: Lovenox
Diet: Regular diet
Disposition: Discharge home today
Total time spent on today's encounter was 55 minutes which included time spent in counseling the patient/family regarding diagnosis and treatment plan as listed above, goals of care, and symptom management. Case was discussed with nursing staff,
specialists, and care coordinators/case management. All labs and imaging personally reviewed by me. Remainder the time spent in detailed review of previous records, lab data, imaging, and other medical provider documentation.
Anticipated Discharge: Today
Subjective/Interval History
-
Date of Service: July 03, 2025
Patient seen and examined at bedside, denies any chest pain , shortness of breath Improved, coughing improved ,no abdominal pain, no nausea, no vomiting, no diarrhea or constipation.
Objective Data
-
Labs:
Laboratory Results
07/03/25
07:29
WBC 4.1 L
Hgb 15.3
Hct 44.7
Plt Count 169
Sodium 134 L
Potassium 4.0
Chloride 100
Carbon Dioxide 31 H
BUN 8 L
Creatinine 0.9
Glucose 98
Calcium 9.1
Vital Signs:
Vital Signs
Temp Pulse Resp BP Pulse Ox
97.8 F 75 18 123/78 98
07/03/25 07:05 07/03/25 07:05 07/03/25 07:05 07/03/25 07:05 07/03/25 09:37
I&O
07/02/25 07/03/25 07/04/25
06:59 06:59 06:59
Intake Total 2019 / 2019 2880 / 2880
Output Total 400 / 400
Balance 1620 / 1620 2880 / 2880
Physical Exam
-
General: Well Developed, Well Nourished, No Apparent Distress and Comfortable
HEENT: Normocephalic, Atraumatic, Moist Mucous Membranes, No Ptosis, PERRLA and Nose Appears Normal
Respiratory: Rales, Rhonchi, Crackles and Non Labored Respirations
Cardiac: Regular Rhythm and S1/S2
Breast: Deferred by me
GI: Soft, Nontender, Nondistended and Normal Bowel Sounds
Genito-urinary: No Costovertebral Tender
Musculoskeletal: No Clubbing, No Cyanosis and No Edema
Skin: Warm
Neuro: Awake, Alert, Oriented, AO x 3 and No Motor Deficits
Psych: Calm
Data Reviewed
-
Diagnostic Radiology: Image personally visualized and interpreted and Report Reviewed by me
CT Scan: Image personally visualized and interpreted and Report Reviewed by me
Ultrasound: Image personally visualized and interpreted and Report Reviewed by me
MRI: Image personally visualized and interpreted and Report Reviewed by me
Medical Tests (Nuc Med, Echo etc): Image personally visualized and interpreted and Report Reviewed by me
Labs: Labs Reviewed by me
Old Records: Reviewed
[2025-07-03] MEDS: ROCEPHIN 1000 MG IV (11:43)
--- NOTE | 2025-07-03 11:43 | W.DCSUMMARY ---
Addendum entered and electronically signed by Chai Fragoso MD 07/03/25 16:01:
Metabolic encephalopathy due to sepsis due to pneumonia
Original Note:
Discharge Summary
Discharge Data
Date of Admission: 07/01/25
Date of Discharge: 07/03/25
Total time spent discharging patient (in min): 40
-
Pending Results: No
Hospital Course
Hospital course
Patient is 29-year-old male with past medical history of colitis/diarrhea came to ER with new onset of generalized weakness and fever. Patient was having symptoms of headache and nasal congestion yesterday and associated with some dry cough.
Patient took some albu-xev-tzedfhb medication without much help. Came to the ER yesterday and was diagnosed to having right lower lobe pneumonia. Patient was provided dose of IV antibiotics followed by oral Augmentin prescription. Patient took 1
dose in the morning today although continued to have worsening fever. Patient was also reported to be somewhat disoriented at times by spouse. Was brought in for further evaluation.
Patient admitted to the hospital and started on IV antibiotics in form of Rocephin and Zithromax.
Seen by pulmonology, CT chest shows right lower lobe consolidation.
Procalcitonin came back 0.23.
Will be discharged on short-term oral antibiotics
During hospitalization patient was treated from the following
1. Right lower lobe pneumonia
Sepsis with associated acute toxic encephalopathy
-Patient have new onset of URTI symptoms/headache/dry cough and some confusion
-Chest x-ray showing right lower lobe infiltrate
-CT chest without contrast images reviewed and patient have dense right lower lobe consolidation. No other complicating findings of effusion/abscess/cavitary lesion.
-Blood cultures collected, f/u result
-Legionella/influenza/COVID-negative
-Respiratory culture collected , f/u result
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
-Got IV Rocephin/azithromycin in ER, switch to Rocephin and doxycycline
-Pulmonology consult for further evaluation and help
- Procalcitonin came back 0.23.
- Will be discharged on short-term oral antibiotics
2. History of colitis
-Last visit reported patient to have infectious colitis
-Spouse reports patient have on and off diarrhea, also have failed to follow-up with gastroenterology in office
3. hyponatremia.
Resolved
CODE STATUS: Full code
DVT prophylaxis: Lovenox
Diet: Regular diet
Disposition: Discharge home today
Total time spent on today's encounter was 40 minutes which included time spent in counseling the patient/family regarding diagnosis and treatment plan as listed above, goals of care, and symptom management. Case was discussed with nursing staff,
specialists, and care coordinators/case management. All labs and imaging personally reviewed by me. Remainder the time spent in detailed review of previous records, lab data, imaging, and other medical provider documentation.
Anticipated Discharge: Today
Discharge Plan
-
Patient Disposition: Home (Routine Discharge)
Discharge Diagnosis/Procedures: Right lower lobe pneumonia
Diet: As tolerated
Activity: As tolerated
Referrals:
Humza Augustin MD [Active, Pulmonary Medicine] - in three to four weeks
Referral Note: Full PFTs on day of office visit
NONE,* [Family Provider, Internal Medicine]
Prescriptions:
New
doxycycline hyclate 100 mg Capsule
100 mg PO BID 3 Days Qty: 6 0RF
dextromethorphan-guaifenesin 10-100 mg/5 mL Syrup
10 ml PO Q4HPRN PRN (Reason: Cough) Qty: 0 0RF
cefdinir 300 mg capsule
300 mg PO BID 3 Days Qty: 6 0RF
Continued
aspirin 325 mg Tablet
650 mg PO DAILYPRN PRN (Reason: fever)
acetaminophen 500 mg Tablet
500 mg PO Q3H
Rx Instructions:
alternating with ibuprofen
ibuprofen 200 mg Tablet
400 mg PO Q3H
Rx Instructions:
alternating with tylenol
acetylcysteine [NAC] 600 mg Capsule
600 mg PO DAILY
Discontinued
amoxicillin-pot clavulanate 875-125 mg Tablet
1 tab PO BID
Discharge Orders:
Discharge Patient (As Directed); Ordered 07/03/25
Ordered By: Chai Fragoso
Discharge Date and Time
Print Language: SERBIAN
[2025-07-03] MEDS: STERILE WATER FOR INJECTION 10 ML IV (11:44)
--- NOTE | 2025-07-03 11:51 | CM ---
Patient will d/c home today
No CM needs at this time
Plan: Home, no needs
--- NOTE | 2025-07-03 11:55 | PTCARENOTE ---
Admissions notified this RN that pt insurance card in file is cut off and a full picture needs to be faxed down. Pt stated the one on file is not accurate because insurance change and is n the process of getting new insurance card. Pt stated
has paper from hospital and is aware that currently everything is [id number] but insurance will back date everything. Admissions notified.
[2025-07-03 12:14] VITALS: BP 129/81
--- NOTE | 2025-07-03 14:33 | PN.CDI ---
CDI
- -
CDI:
Physician Documentation Request
Admit Date: 07/01/25 18:29
Dear Doctor Fouzia,
Please review the following and provide your response in the progress notes.
Clinical Indicators:
- Progress notes 'Sepsis with associated acute toxic encephalopathy'
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
- No specific toxins documented
Please specify the known or suspected type of the documented encephalopathy.
Metabolic encephalopathy due to sepsis due to pneumonia
Septic encephalopathy due to pneumonia
Toxic encephalopathy due to
Other (please specify)
Use of terms such as suspected, likely, concern for, or probable (associated with a specific diagnosis that is being evaluated, monitored, or treated as if it exists) are acceptable and can be coded in the inpatient setting, when documented at the
time of discharge.
Thank you,
Fatemeh Sol RN
CDI Specialist
Please use your independent medical judgment in providing your response.
== END 2025-07-03 12:54 | disposition home or self-care (01) | DRG 871 ==
LOC: 4 WEST ACU 18:29
PROVIDERS: ADMITTING PHYSICIAN Hospitalist; ATTENDING PHYSICIAN General Practice; CONSULT PHYSICIAN Internal Medicine Critical Care Medicine; EMERGENCY PHYSICIAN Emergency Medicine
DX: A41.9 Sepsis, unspecified organism (principal); G93.41 Metabolic encephalopathy; J18.9 Pneumonia, unspecified organism; E87.1 Hypo-osmolality and hyponatremia; R65.20 Severe sepsis without septic shock; E87.6 Hypokalemia
CPT/HCPCS: 71250; 80048; 81003; 81015; 82962; 83605; 84145; 85025; 87040; 87070; 87205; 87449; 87899; 96361; 96374; 99284